=== PATIENT | female | born 1950 | race Caucasian/White ===

== ENCOUNTER 2020-03-12 10:01 | Inpatient (IN) | payer OTHER ==
[2020-03-12 10:18] VITALS: BMI 27.4
--- NOTE | 2020-03-12 10:43 | PDOC ---
History of Present Illness - General Chief Complaint: Pain Stated Complaint: STOMACH PAIN (DISCOMFORT) Time Seen by Provider: 03/12/20 10:42 History Source: Patient Exam Limitations: No Limitations - History of Present Illness Initial Comments: 03/12/20 10:43 69yF w PMHx HTN HLD GERD presenting w Past History - Medical History Allergies/Adverse Reactions: Allergies Allergy/AdvReac Type Severity Reaction Status Date / Time No Known Allergies Allergy Verified 03/12/20 10:18 Home Medications: Ambulatory Orders Atorvastatin Ca [Lipitor] 20 mg PO DAILY 12/20/11 Esomeprazole Mag Trihydrate [Nexium] 40 mg PO DAILY 12/20/11 Lisinopril [Prinivil] 20 mg PO DAILY 12/20/11 COPD: No GI Disorders: Yes (GERD) HTN: Yes Hypercholesterolemia: Yes - Reproductive History Is Patient Now?: No - Psycho-Social/Smoking History Smoking Status: No Smoking History: Never smoked Have you smoked in the past 12 months: No Number of Cigarettes Smoked Daily: 0 Information on smoking cessation initiated: No - Substance Abuse Hx (Audit-C & DAST Scrn) How often the patient has a drink containing alcohol: Never Score: In Men: 4 or > Positive; In Women: 3 or > Positive: 0 Screen Result (Pos requires Nsg. Audit-10AR): Negative In the last yr the pt used illegal drug/Rx for NonMed reason: No Score: Yes response is considered Positive: 0 Screen Result (Positive result requires Nsg. DAST-10): Negative *Physical Exam - Vital Signs Last Vital Signs Temp Pulse Resp BP Pulse Ox 98.6 F 110 H 17 139/83 100 03/12/20 10:06 03/12/20 10:06 03/12/20 10:06 03/12/20 10:06 03/12/20 10:06
--- NOTE | 2020-03-12 10:56 | PDOC ---
History of Present Illness - General Chief Complaint: Pain Stated Complaint: STOMACH PAIN (DISCOMFORT) Time Seen by Provider: 03/12/20 10:42 - History of Present Illness Initial Comments: 03/12/20 10:49 69yo F w/ PMH diverticuli and GERD p/w 1wk suprapubic ABD pain. It is worst in the AM and gets better after defecation. It is not getting better or worse. No apparent aggrevating factors. It does not radiate. She went to urgent care on Monday03/08/2020 and was prescribed cipro/flagyl. She has been taking them since then but has not had any relief. Associated w/ decreased appetite, some discomfort w/ urination, decreased c aliber stools, increased pushing needed to produce BM. Endorses that difference between this episode and her last episode of diverticulitis was that last time the ABX resolved the discomfort. Denies recent fever/rash/sore throat/illness. Denies hematuria, burning w/ urination, or vaginal/urinary discharge. States she is up to date on pap smear and colonoscopy. Denies ABD surgery, denies children. PMH: GERD, diverticuli, melanoma in situ in 2015 PSH: Myomectomy for fibroids in the . SHx: denies smoking, EtOH, street drugs, sexual activity. Past History - Medical History Allergies/Adverse Reactions: Allergies Allergy/AdvReac Type Severity Reaction Status Date / Time No Known Allergies Allergy Verified 03/12/20 10:18 Home Medications: Ambulatory Orders Atorvastatin Ca [Lipitor] 20 mg PO DAILY 12/20/11 Esomeprazole Mag Trihydrate [Nexium] 40 mg PO DAILY 12/20/11 Lisinopril [Prinivil] 20 mg PO DAILY 12/20/11 COPD: No GI Disorders: Yes (GERD) HTN: Yes Hypercholesterolemia: Yes - Reproductive History Is Patient Now?: No - Psycho-Social/Smoking History Smoking Status: No Smoking History: Never smoked Have you smoked in the past 12 months: No Number of Cigarettes Smoked Daily: 0 Information on smoking cessation initiated: No - Substance Abuse Hx (Audit-C & DAST Scrn) How often the patient has a drink containing alcohol: Never Score: In Men: 4 or > Positive; In Women: 3 or > Positive: 0 Screen Result (Pos requires Nsg. Audit-10AR): Negative In the last yr the pt used illegal drug/Rx for NonMed reason: No Score: Yes response is considered Positive: 0 Screen Result (Positive result requires Nsg. DAST-10): Negative Review of Systems - Review of Systems Able to Perform ROS?: Yes Is the patient limited Ethiopian proficient: No Constitutional: Yes: Loss of Appetite, Other (fatigue). No: Chills, Fever, Night Sweats, Weakness HEENTM: No: Blurred Vision, Tearing, Ear Pain, Nose Congestion, Difficulty Swallowing Respiratory: No: Cough, Shortness of Breath, SOB with Exertion, Wheezing, Productive cough Cardiac (ROS): No: Chest Pain, Irregular Heart Rate, Palpitations, Syncope ABD/GI: Yes: Abd. Pain w/ defecation, Constipated, Poor Appetite, Poor Fluid Intake, Abdominal cramping. No: Abdominal Distended, Blood Streaked Bowels, Diarrhea, Nausea, Vomiting : Yes: Pain. No: Burning, Dysuria, Discharge, Frequency, Flank Pain, Hematuria Musculoskeletal: No: Back Pain, Muscle Weakness Integumentary: No: Rash Neurological: No: Headache, Dizziness Endocrine: No: Excessive Sweating, Unexplained Weight Gain, Unexplained Weight Loss Hematologic/Lymphatic: No: Symptoms Reported *Physical Exam - Vital Signs Last Vital Signs Temp Pulse Resp BP Pulse Ox 98.6 F 110 H 17 139/83 100 03/12/20 10:06 03/12/20 10:06 03/12/20 10:06 03/12/20 10:06 03/12/20 10:06 - Physical Exam General Appearance: Yes: Nourished, Appropriately Dressed, Apparent Distress HEENT: positive: EOMI, Normal Voice Respiratory/Chest: positive: Lungs Clear, Normal Breath Sounds. negative: Chest Tender Cardiovascular: positive: Regular Rhythm, S1, S2, Tachycardia. negative: Irregularly Irregular Gastrointestinal/Abdominal: positive: Normal Bowel Sounds, Soft. negative: Tender, Organomegaly, Pulsatile Mass, Increased Bowel Sounds, Guarding, Tenderness Musculoskeletal: positive: Normal Inspection Extremity: positive: Normal Capillary Refill, Normal Range of Motion Integumentary: positive: Normal Color, Dry, Warm Neurologic: positive: Alert, Normal Mood/Affect, Normal Response ED Treatment Course - LABORATORY CBC & Chemistry Diagram: 03/12/20 10:56 03/12/20 10:56 - RADIOLOGY Radiology Studies Ordered: Category Date Time Status ABDOMEN & PELVIS CT WITH CONTR [CT] Stat CT Scan 03/12/20 10:47 Ordered Medical Decision Making - Medical Decision Making 03/12/20 10:59 h/o diverticulitis -> CT ABD/Pelvis w/ IV contrast. decreased caliber stools and need to push for BM -> CT ABD/Pelvis to look for feces CBC to look for anemia and signs of inflammation. CMP to look for electrolyte perturbation Discharge - Discharge Information Problems reviewed: Yes Clinical Impression/Diagnosis: Diverticulitis - Admission Yes - Follow up/Referral - Patient Discharge Instructions - Post Discharge Activity
[2020-03-12] MEDS ORDERED: LACTATED RINGERS SOLUTION 1000 ML INFUS.BAG IV ONE ×2 (11:11→14:36)
[2020-03-12 11:30] LABS: HEMATOCRIT 36.2 % (32.4-45.2); MCH 29.7 pg (25.7-33.7); MCHC 33.2 g/dl (32.0-36.0); MEAN CELL VOLUME 89.4 fl (80-96); MEAN PLT VOLUME 7.7 fl (7.5-11.1); PLATELET COUNT 343 K/MM3 (134-434); RBC 4.05 M/mm3 (3.60-5.2); RDW 13.2 % (11.6-15.6); WHITE BLOOD COUNT 12.2 K/mm3 (4.0-10.0)
[2020-03-12 11:37] LABS: INR 1.2 (0.83-1.09); PROTHROMBIN TIME (PATIENT) 14.2 SEC (9.7-13.0)
[2020-03-12 11:39] LABS: ACTIVATED PTT 32.8 SECONDS (25.2-36.5)
[2020-03-12 11:59] LABS: MAGNESIUM 1.9 mg/dL (1.8-2.4); PHOSPHOROUS 3.1 mg/dL (2.5-4.9)
[2020-03-12 12:02] LABS: ALBUMIN 3.2 g/dl (3.4-5.0); BILIRUBIN,TOTAL 0.3 mg/dL (0.2-1); BLOOD UREA NITROGEN 6.6 mg/dL (7-18); CALCIUM 9.3 mg/dL (8.5-10.1); CREATININE 0.7 mg/dL (0.55-1.3); TOT PROT 6.6 g/dl (6.4-8.2)
[2020-03-12 12:41] LABS: PH,URINE 6.5 (5.0-8.0); URINE APPEARANCE CLEAR; URINE BILIRUBIN NEGATIVE (NEGATIVE); URINE COLOR YELLOW; URINE GLUCOSE (UA) NEGATIVE (NEGATIVE); URINE KETONE NEGATIVE (NEGATIVE); URINE LEUK ESTERASE NEGATIVE (NEGATIVE); URINE NITRITE NEGATIVE (NEGATIVE); URINE PROTEIN NEGATIVE (NEGATIVE); URINE UROBILINOGEN 0.2 mg/dL (0.2-1.0)
--- NOTE | 2020-03-12 14:19 | PDOC ---
Documentation entered by Mallory Foreman SCRIBE, acting as scribe for Nishant Rogel MD. Nishant Rogel MD: This documentation has been prepared by the cynthiaibe, Mallory Foreman SCRIBE, under my direction and personally reviewed by me in its entirety. I confirm that the documentation accurately reflects all work, treatment, procedures, and medical decision making performed by me. Attending Attestation - Resident Resident Name: Diego Garay - ED Attending Attestation I have performed the following: I have examined & evaluated the patient, The case was reviewed & discussed with the resident, I agree w/resident's findings & plan, Exceptions are as noted - HPI HPI: 03/12/20 12:01 The patient is a 69-year-old female with a past medical history significant for diverticulitis and GERD who presents to the emergency department with abdominal pain. The patient presents with 1-week history of suprapubic abdominal pain, associated with decreased appetite. The patient reports the pain is worse in the morning, with relief noted after a bowel movement. States the sxs are identical to when she had diverticulitis in the past. The patient reports presenting at an urgent care on 03/08 for the symptoms, was prescribed Cipro and Flagyl. The patient reports being compliant with the medication x5 days, without pain relief. Denies fever, chills, chest pain, SOB, nausea, vomiting, diarrhea. Denies headache, dizziness, focal weakness/numbness. - Physicial Exam PE: 03/12/20 14:07 GENERAL: Awake, alert, and fully oriented, in no acute distress. +mildly uncomfortable. EYES: PERRLA, EOMI, sclera anicteric, conjunctiva clear ENT: Oropharynx clear without exudates. Moist mucosa NECK: Normal ROM, supple, no lymphadenopathy, JVD, or masses LUNGS: Breath sounds equal, clear to auscultation bilaterally. No wheezes, and no crackles HEART: tachycardic but regular to 104, normal S1 and S2, no murmurs, rubs or gallops ABDOMEN: +suprapubic tenderness to palpation, nondistended. Soft, normoactive bowel sounds. No guarding, no rebound. No masses. No CVA tenderness. EXTREMITIES: Normal range of motion, no edema. No clubbing or cyanosis. No cords, erythema, or tenderness BACK: No midline spinal tenderness in cervical/thoracic/lumbar region NEUROLOGICAL: Normal speech, cranial nerves intact, equal strength and sensation b/l SKIN: Warm, Dry, normal turgor, no rashes or lesions noted. - Medical Decision Making 03/12/20 14:18 69-year-old female presents emergency department with 1 week of suprapubic abdominal pain. Patient was diagnosed with presumed diverticulitis at urgent care and has been taking 5 days of ciprofloxacin and Flagyl. Differential includes diverticulitis versus colitis versus enteritis versus UTI versus appendectomy. Plan: -labs -UA -CTAP w IV contrast -reassess
[2020-03-12] MEDS ORDERED: PIPERACILLIN/TAZOB 4.5 GM 4.5 GM in DEXTROSE 5%-WATER 100 ML IVPB ONE (14:35)
[2020-03-12] MEDS ORDERED: PIPERACILLIN/TAZOB 4.5 GM 4.5 GM/100 ML BAG IVPB ONE (14:46)
[2020-03-12] MEDS ORDERED: SODIUM CHLORIDE 1,000 ML IV SCH (15:00)
--- NOTE | 2020-03-12 15:17 | HP ---
CHIEF COMPLAINT: Lower abdominal pain PCP: Carol Pantoja HISTORY OF PRESENT ILLNESS: 69yoF with h/o diverticulitis, GERD, and HLD who presents with 1 wk of lower abdominal pain. She has been in her usual state of health until about a week ago when she developed abdominal cramping that progressed to lower abdominal pain, similar to prior episodes of diverticulitis. Patient reports she was seen at urgent care on 03/08 and started on ciprofloxacin and metronidazole without improvement in pain. Endorses poor oral intake and bowel movements that vary from hard to loose but denies fever, chills, vomiting, hematochezia, melena. Notes she had one prior episode of diverticulitis about 5 years ago that improved with outpatient management. She follows with Dr. Walker for GI, most recent colonoscopy was around 2y ago. Patient was afebrile but tachycardic in the ED to 110, labs notable for WBC 12. 2. CT abd/pelvis showed evidence of acute sigmoid diverticulitis without abscess. Patient received 2L LR bolus and Zosyn and is admitted for further management. At time of evaluation, patient notes pain has improved and does not require analgesia. Recent Travel: Denies PAST MEDICAL HISTORY: in addition to above: HTN, no longer on medication melanoma in situ (remote) uterine fibroids PAST SURGICAL HISTORY: Myomectomy Bilateral knee meniscal repairs Social History: Smoking: Remote, quit 40y ago Alcohol: Denies Drugs: Denies Allergies No Known Allergies Allergy (Verified 03/12/20 10:18) HOME MEDICATIONS: Lipitor 20mg PO qhs Famotidine 20mg PO daily Esomeprazole 40mg PO daily Vitamin D Vitamin C REVIEW OF SYSTEMS 10pt ROS negative except as noted in HPI PHYSICAL EXAMINATION Vital Signs - 24 hr 03/12/20 10:06 Temperature 98.6 F Pulse Rate 110 H Respiratory 17 Rate Blood Pressure 139/83 O2 Sat by Pulse 100 Oximetry (%) GENERAL: Awake, alert, and fully oriented, in no acute distress. EYES: Pupils equal, round and reactive to light, extraocular movements intact, sclera anicteric, conjunctiva clear EARS, NOSE, THROAT: Moist mucous membranes. LUNGS: Breath sounds equal, clear to auscultation bilaterally. No wheezes, and no crackles. No accessory muscle use. HEART: Regular rate and rhythm, normal S1 and S2 without murmur, rub or gallop. ABDOMEN: Soft, not distended, normoactive bowel sounds. Mildly tender to palpation lower abdomen without guarding or rebound. MUSCULOSKELETAL: No peripheral edema NEUROLOGICAL: Cranial nerves II-XII intact. Normal speech. PSYCHIATRIC: AOx3. Cooperative. Good eye contact. Appropriate mood and affect. SKIN: Warm, dry, normal turgor, no rashes or lesions noted, normal capillary refill. Laboratory Results - last 24 hr 03/12/20 03/12/20 03/12/20 06:50 10:56 10:56 WBC 12.2 H RBC 4.05 Hgb 12.0 Hct 36.2 MCV 89.4 MCH 29.7 MCHC 33.2 RDW 13.2 Plt Count 343 D MPV 7.7 PT with INR INR PTT (Actin FS) Sodium 138 Potassium 4.0 Chloride 103 Carbon Dioxide 28 Anion Gap 7 L BUN 6.6 L Creatinine 0.7 Est GFR (CKD-EPI)AfAm 103.91 Est GFR (CKD-EPI)NonAf 89.65 Random Glucose 181 H Lactic Acid Calcium 9.3 Phosphorus Magnesium Total Bilirubin 0.3 AST 9 L ALT 21 Alkaline Phosphatase 71 Total Protein 6.6 Albumin 3.2 L Lipase Urine Color Urine Appearance Urine pH Ur Specific Vanderbilt Urine Protein Urine Glucose (UA) Urine Ketones Urine Blood Urine Nitrite Urine Bilirubin Urine Urobilinogen Ur Leukocyte Esterase Blood Type O POSITIVE 03/12/20 03/12/20 03/12/20 10:56 10:56 10:56 WBC RBC Hgb Hct MCV MCH MCHC RDW Plt Count MPV PT with INR 14.20 H INR 1.20 H PTT (Actin FS) 32.8 Sodium Potassium Chloride Carbon Dioxide Anion Gap BUN Creatinine Est GFR (CKD-EPI)AfAm Est GFR (CKD-EPI)NonAf Random Glucose Lactic Acid 2.0 Calcium Phosphorus 3.1 Magnesium 1.9 Total Bilirubin AST ALT Alkaline Phosphatase Total Protein Albumin Lipase 72 L Urine Color Urine Appearance Urine pH Ur Specific Vanderbilt Urine Protein Urine Glucose (UA) Urine Ketones Urine Blood Urine Nitrite Urine Bilirubin Urine Urobilinogen Ur Leukocyte Esterase Blood Type 03/12/20 12:00 WBC RBC Hgb Hct MCV MCH MCHC RDW Plt Count MPV PT with INR INR PTT (Actin FS) Sodium Potassium Chloride Carbon Dioxide Anion Gap BUN Creatinine Est GFR (CKD-EPI)AfAm Est GFR (CKD-EPI)NonAf Random Glucose Lactic Acid Calcium Phosphorus Magnesium Total Bilirubin AST ALT Alkaline Phosphatase Total Protein Albumin Lipase Urine Color Yellow Urine Appearance Clear Urine pH 6.5 Ur Specific [place]bilt 1.007 L Urine Protein Negative Urine Glucose (UA) Negative Urine Ketones Negative Urine Blood Negative Urine Nitrite Negative Urine Bilirubin Negative Urine Urobilinogen 0.2 Ur Leukocyte Esterase Negative Blood Type CXR and CT abd/pelvis reviewed in chart ASSESSMENT/PLAN: 69yoF with h/o diverticulitis, GERD, HTN, and HLD who presents with 1 wk of lower abdominal pain similar to prior episodes of diverticulitis, found to have acute sigmoid diverticulitis without improvement in symptoms despite outpatient antibiotics. Sepsis secondary to acute sigmoid diverticulitis Meets sepsis criteria with leukocytosis, tachycardia s/p roughly 30cc/kg bolus in ED and Zosyn given outpatient antibiotic failure CT abd/pelvis showing acute sigmoid diverticulitis without evidence of complications First recurrence since initial episode of diverticulitis about 5y ago - NPO except meds pending improvement; advance as tolerated - Continue maintenance fluids - continue Zosyn 4.5g q6h - consult GI Chronic: HLD: continue atorvastatin GERD: continue famotidine, PPI DVT ppx: Lovenox subq Code status: Full Family Medical History Family History: Denies Visit type - Medication Review Med list reviewed for High Risk Meds patients 65 and older: Yes - Emergency Visit Emergency Visit: No - New Patient This patient is new to me today: Yes Date on this admission: 03/12/20 - Critical Care Critical Care patient: No
--- NOTE | 2020-03-12 15:28 | EKG ---
Test Reason : Blood Pressure : / mmHG Vent. Rate : 077 BPM Atrial Rate : 077 BPM P-R Int : 130 ms QRS Dur : 078 ms QT Int : 388 ms P-R-T Axes : 035 -10 046 degrees QTc Int : 439 ms NORMAL SINUS RHYTHM ANTERIOR INFARCT , AGE UNDETERMINED ABNORMAL ECG WHEN COMPARED WITH ECG OF 16-JUL-2010 12:32, ANTERIOR INFARCT IS NOW PRESENT Confirmed by RUSTY STEWART MD ([id number]) on 03/12/2020 3:28:10 PM Referred By: Confirmed By:RUSTY STEWART MD
[2020-03-12] MEDS ORDERED: DEXTROSE 5%-WATER 100 ML IVPB ONE (19:46)
[2020-03-12] MEDS ORDERED: PIPERACILLIN/TAZOBACTAM 4.5 GM VIAL IVPB ONE (19:46)
[2020-03-12] MEDS: ACETAMINOPHEN 325 MG TABLET (FP) PO PRN (19:55)
[2020-03-12] MEDS ORDERED: PIPERACILLIN/TAZOB 4.5 GM 4.5 GM in DEXTROSE 5%-WATER 100 ML IVPB SCH (21:00)
[2020-03-12] MEDS: PIPERACILLIN/TAZOB 4.5 GM 4.5 GM in DEXTROSE 5%-WATER 100 ML IVPB SCH (22:00)
[2020-03-12] MEDS: ATORVASTATIN CA 20 MG TABLET (FP) PO SCH (22:13)
[2020-03-13] MEDS ORDERED: DEXTROSE 5%-WATER 100 ML IVPB ONE (01:59)
[2020-03-13] MEDS ORDERED: PIPERACILLIN/TAZOBACTAM 4.5 GM VIAL IVPB ONE (01:59)
[2020-03-13] MEDS: PIPERACILLIN/TAZOB 4.5 GM 4.5 GM in DEXTROSE 5%-WATER 100 ML IVPB SCH (02:14)
[2020-03-13] MEDS: ACETAMINOPHEN 325 MG TABLET (FP) PO PRN ×2 (06:59→19:53)
--- NOTE | 2020-03-13 08:03 | PN ---
Progress Note, Physician Chief Complaint: Seen and examined in bed. Minimal abdominal pain. States pain resolved after she had small BM last night.Noted to have uncomplicated sigmoid diverticuliis on CT scan, started on IV abx. GI following. To start on clear liquids History of Present Illness: 69yoF with h/o diverticulitis, GERD, HTN, and HLD who presents with 1 wk of lower abdominal pain similar to prior episodes of diverticulitis, found to have acute sigmoid diverticulitis without improvement in symptoms despite outpatient antibiotics. - Current Medication List Current Medications: Active Medications Acetaminophen (Tylenol -) 650 mg PO Q4H PRN PRN Reason: MILD PAIN 1-3 Last Admin: 03/13/20 06:59 Dose: 650 mg Documented by: Atorvastatin Calcium (Lipitor -) 20 mg PO HS RATNA Last Admin: 03/12/20 22:13 Dose: 20 mg Documented by: Enoxaparin Sodium (Lovenox -) 40 mg SQ DAILY RATNA Famotidine (Pepcid -) 20 mg PO DAILY RATNA Sodium Chloride (Normal Saline -) 1,000 mls @ 100 mls/hr IV ASDIR RATNA Last Admin: 03/12/20 15:08 Dose: 100 mls/hr Documented by: Piperacillin Sod/Tazobactam (Sod 4.5 gm/ Dextrose) 100 mls @ 200 mls/hr IVPB Q6H-IV RATNA; Protocol Piperacillin Sod/Tazobactam (Sod 4.5 gm/ Dextrose) 100 mls @ 200 mls/hr IVPB Q6H-IV RATNA; Protocol Stop: 03/13/20 15:29 Last Admin: 03/13/20 02:14 Dose: 200 mls/hr Documented by: - Objective Vital Signs: Vital Signs Temperature 98.9 F 03/13/20 05:13 Pulse Rate 69 03/13/20 05:13 Respiratory Rate 18 03/13/20 05:13 Blood Pressure 120/68 03/13/20 05:13 O2 Sat by Pulse Oximetry (%) 87 L 03/13/20 05:13 Constitutional: Yes: Well Nourished, No Distress, Calm Eyes: Yes: WNL, Conjunctiva Clear HENT: Yes: WNL, Atraumatic, Normocephalic Neck: Yes: WNL, Supple, Trachea Midline Cardiovascular: Yes: WNL, Regular Rate and Rhythm Respiratory: Yes: WNL, Regular, CTA Bilaterally Gastrointestinal: Yes: WNL, Normal Bowel Sounds ...Rectal Exam: Yes: Deferred Genitourinary: Yes: WNL Breast(s): Yes: WNL Musculoskeletal: Yes: WNL Extremities: Yes: WNL Edema: No Peripheral Pulses WNL: Yes Integumentary: Yes: WNL Neurological: Yes: WNL, Alert, Oriented ...Motor Strength: WNL Psychiatric: Yes: WNL Labs: CBC, BMP 03/12/20 10:56 03/12/20 10:56 INR, PTT INR 1.20 (0.83-1.09) H 03/12/20 10:56 - ....Imaging Cat Scan: Report Reviewed (CT abd/pelvis showed evidence of acute sigmoid diverticulitis without abscess.) Problem List - Problems (1) Prophylactic measure Assessment/Plan: FEN Fluids: IVF Electrolytes: monitor & replete as needed Nutrition: NPO-can start clears at lunch DVT moderate risk sq lovenox Dispo Maintain as inpatient full code discharge planning Code(s): Z29.9 - ENCOUNTER FOR PROPHYLACTIC MEASURES, UNSPECIFIED (2) Suspected COVID-19 virus infection Assessment/Plan: COVID Suspicion low On RA strict airborne/droplet precautions until resulted Code(s): Z20.828 - CONTACT W AND EXPOSURE TO OTH VIRAL COMMUNICABLE DISEASES (3) GERD (gastroesophageal reflux disease) Assessment/Plan: c/w home famotodine Code(s): K21.9 - GASTRO-ESOPHAGEAL REFLUX DISEASE WITHOUT ESOPHAGITIS (4) HTN (hypertension) Assessment/Plan: normotensive on no home meds Code(s): I10 - ESSENTIAL (PRIMARY) HYPERTENSION (5) HLD (hyperlipidemia) Assessment/Plan: c/w atorvastatin Code(s): E78.5 - HYPERLIPIDEMIA, UNSPECIFIED (6) Diverticulitis Assessment/Plan: Acute uncomplicated sigmoid diverticulitis appreciate GI consultation can advance to clear liquids for lunch c/w abx-ertapenem as per GI if continues to clinically improve advance , can advance diet, change to PO Abx tomorrow (augmentin 875mg PO Q12 hours) 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 has follow-up visit 03/17 Code(s): K57.92 - DVTRCLI OF INTEST, PART UNSP, W/O PERF OR ABSCESS W/O BLEED Visit type - Emergency Visit Emergency Visit: Yes ED Registration Date: 03/12/20 Care time: The patient presented to the Emergency Department on the above date and was hospitalized for further evaluation of their emergent condition. - New Patient This patient is new to me today: Yes Date on this admission: 03/13/20 - Critical Care Critical Care patient: No - Discharge Referral Referred to [facility] Med P.C[facility] No - Medication Review Med list reviewed for High Risk Meds patients 65 and older: Yes
--- NOTE | 2020-03-13 08:04 | CON.GI ---
Consult Consult Specialty:: GI Referred by:: Hospitalist Service Reason for Consultation:: Abd. pain - History of Present Illness Chief Complaint: Lower abdominal pain History of Present Illness: 69F admitted for evaluation of abdominal pain. States that began having pelvic / LLQ pain last , it progressed in intensity, went to urgent care this past monday (her machine etcher Dr. Bonilla in [place] could not see her this week), was given cipro/flagyl. Pain persisted so she came to ER. Noted to have uncomplicated sigmoid diverticuliis on CT scan, started on zosyn. Pain improving. Had diverticulitis about 5 years ago. Last colonoscopy was 1.5 [address] Bonilla. She believes that it was a normal study. Mother had colon cancer age 78. Overall pain improved. Had a small bowel movement. Takes nightly xanax to help her sleep - History Source History Provided By: Patient - Past Medical History Cardio/Vascular: Yes: HTN Gastrointestinal: Yes: Diverticulitis (2004), Diverticulosis, GERD ...: No - Past Surgical History Additional Surgical History: Myomectomy and knee surgery - Alcohol/Substance Use History of Substance Use: reports: None - Smoking History Smoking history: Never smoked Have you smoked in the past 12 months: No Aproximately how many cigarettes per day: 0 Home Medications - Allergies Allergies/Adverse Reactions: Allergies Allergy/AdvReac Type Severity Reaction Status Date / Time No Known Allergies Allergy Verified 03/12/20 10:18 - Home Medications Home Medications: Ambulatory Orders Atorvastatin Ca [Lipitor] 20 mg PO HS 12/20/11 Esomeprazole Mag Trihydrate [Nexium] 40 mg PO DAILY 12/20/11 Famotidine [Acid Controller] 20 mg PO DAILY 03/12/20 Physical Exam-GI Vital Signs: Vital Signs Temperature 98.9 F 03/13/20 05:13 Pulse Rate 69 03/13/20 05:13 Respiratory Rate 18 03/13/20 05:13 Blood Pressure 120/68 03/13/20 05:13 O2 Sat by Pulse Oximetry (%) 87 L 03/13/20 05:13 Constitutional: Yes: Calm Eyes: No: Sclera Icterus Cardiovascular: Yes: Regular Rate and Rhythm. No: Murmur Respiratory: Yes: CTA Bilaterally Gastrointestinal Inspection: No: Distention ...Auscultate: Yes: Normoactive Bowel Sounds ...Palpate: Yes: Soft. No: Hepatomegaly, Splenomegaly, Tenderness ...Percussion: No: Tympanitic Edema: No (No LE edema) Neurological: Yes: Alert, Oriented Labs: CBC, BMP 03/12/20 10:56 03/12/20 10:56 INR, PTT INR 1.20 (0.83-1.09) H 03/12/20 10:56 Hepatic Panel Total Bilirubin 0.3 mg/dL (0.2-1) 03/12/20 10:56 AST 9 U/L (15-37) L 03/12/20 10:56 ALT 21 U/L (13-61) 03/12/20 10:56 Alkaline Phosphatase 71 U/L (45-117) 03/12/20 10:56 Albumin 3.2 g/dl (3.4-5.0) L 03/12/20 10:56 Imaging - Results Cat Scan: Report Reviewed, Image Reviewed Problem List - Problems (1) Diverticulitis Assessment/Plan: Acute uncomplicated sigmoid diverticulitis: 2nd episode, last around 2014 Clinically improved with benign exam Advise: Advance to clear liquids for lunch AM labs Continue IV Abx for today If continued clinical improvement / improvement in leukocytosis advance , can advance diet, change to PO Abx tomorrow (augmentin 875mg PO Q12 hours). Would need total of 10 days of antibiotics. Needs follow-up with her machine etcher. has follow-up visit 9/ AM Labs Code(s): K57.92 - DVTRCLI OF INTEST, PART UNSP, W/O PERF OR ABSCESS W/O BLEED
[2020-03-13 08:48] LABS: BASO % 0.3 % (0-2.0); EOS % 0.4 % (0-4.5); HEMATOCRIT 32.2 % (32.4-45.2); HEMOGLOBIN 10.9 GM/dL (10.7-15.3); LYMPH % 10.6 % (8-40); MCH 29.6 pg (25.7-33.7); MCHC 33.7 g/dl (32.0-36.0); MEAN PLT VOLUME 7.5 fl (7.5-11.1); MONO % 9.4 % (3.8-10.2); NEUT % 79.3 % (42.8-82.8); PLATELET COUNT 314 K/MM3 (134-434); RBC 3.66 M/mm3 (3.60-5.2); WHITE BLOOD COUNT 10.2 K/mm3 (4.0-10.0)
[2020-03-13 09:08] LABS: BLOOD UREA NITROGEN 5.2 mg/dL (7-18); CALCIUM 8.7 mg/dL (8.5-10.1); CREATININE 0.5 mg/dL (0.55-1.3); POTASSIUM 3.9 mmol/L (3.5-5.1)
[2020-03-13] MEDS: FAMOTIDINE 20 MG TABLET PO SCH (09:31)
[2020-03-13] MEDS: DEXTROSE 5%-0.45% SALINE 1,000 ML IV SCH ×2 (09:31→19:52)
[2020-03-13] MEDS: ENOXAPARIN NA (PORCINE) 40 MG/0.4 ML DISP.SYRIN SQ SCH (09:35)
[2020-03-13] MEDS ORDERED: PANTOPRAZOLE SODIUM 40 MG VIAL IVPUSH SCH (10:00)
[2020-03-13] MEDS: ERTAPENEM SODIUM 1 GM in SODIUM CHLORIDE 50 ML IVPB SCH (10:27)
[2020-03-13] MEDS: ATORVASTATIN CA 20 MG TABLET (FP) PO SCH (21:35)
--- NOTE | 2020-03-14 07:18 | DS ---
Physical Exam: SUBJECTIVE: Patient seen and examined. No complaints offered and medically stable for dc to home with f/u with home GI OBJECTIVE: Vital Signs Period Temp Pulse Resp BP Sys/White Pulse Ox Last 24 Hr 98.4 F-99.1 F 63-70 17-19 128-161/66-85 84-99 PHYSICAL EXAM Constitutional: Yes: Well Nourished, No Distress, Calm Eyes: Yes: WNL, Conjunctiva Clear HENT: Yes: WNL, Atraumatic, Normocephalic Neck: Yes: WNL, Supple, Trachea Midline Cardiovascular: Yes: WNL, Regular Rate and Rhythm Respiratory: Yes: WNL, Regular, CTA Bilaterally Gastrointestinal: Yes: WNL, Normal Bowel Sounds ...Rectal Exam: Yes: Deferred Genitourinary: Yes: WNL Breast(s): Yes: WNL Musculoskeletal: Yes: WNL Extremities: Yes: WNL Edema: No Peripheral Pulses WNL: Yes Integumentary: Yes: WNL Neurological: Yes: WNL, Alert, Oriented ...Motor Strength: WNL Psychiatric: Yes: WNL LABS Laboratory Results - last 24 hr 03/12/20 03/13/20 03/13/20 14:50 08:00 08:00 WBC 10.2 H RBC 3.66 Hgb 10.9 Hct 32.2 L MCV 88.0 MCH 29.6 MCHC 33.7 RDW 13.0 Plt Count 314 MPV 7.5 Absolute Neuts (auto) 8.1 H Neutrophils % 79.3 Lymphocytes % 10.6 D Monocytes % 9.4 Eosinophils % 0.4 Basophils % 0.3 Nucleated RBC % 0 Sodium 141 Potassium 3.9 Chloride 106 Carbon Dioxide 28 Anion Gap 7 L BUN 5.2 L Creatinine 0.5 L Est GFR (CKD-EPI)AfAm 116.07 Est GFR (CKD-EPI)NonAf 100.15 Random Glucose 107 H Calcium 8.7 COVID-19 (ANUJ) Not detected HOSPITAL COURSE: Date of Admission:03/12/20 Date of Discharge: 03/14/20 Problem List - Problems (1) Prophylactic measure Assessment/Plan: FEN Fluids: adeqaute intake Electrolytes: monitored & repleted as needed Nutrition:advance as toletrate Dispo discharge to home Code(s): Z29.9 - ENCOUNTER FOR PROPHYLACTIC MEASURES, UNSPECIFIED (2) r/o COVID-19 virus infection Assessment/Plan: neg pcr Code(s): Z20.828 - CONTACT W AND EXPOSURE TO OTH VIRAL COMMUNICABLE DISEASES (3) GERD (gastroesophageal reflux disease) Assessment/Plan: c/w home famotodine Code(s): K21.9 - GASTRO-ESOPHAGEAL REFLUX DISEASE WITHOUT ESOPHAGITIS (4) HTN (hypertension) Assessment/Plan: normotensive on no home meds Code(s): I10 - ESSENTIAL (PRIMARY) HYPERTENSION (5) HLD (hyperlipidemia) Assessment/Plan: c/w atorvastatin Code(s): E78.5 - HYPERLIPIDEMIA, UNSPECIFIED (6) Diverticulitis Assessment/Plan: Acute uncomplicated sigmoid diverticulitis augmentin 875mg PO Q12 hours x 10days 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 has follow-up visit 03/17 Code(s): K57.92 - DVTRCLI OF INTEST, PART UNSP, W/O PERF OR ABSCESS W/O BLEED Medically stable for dc to home Minutes to complete discharge: 35 Discharge Summary Problems reviewed: Yes Reason For Visit: DIVERTICULITIS Current Active Problems Diverticulitis (Acute) GERD (gastroesophageal reflux disease) (Acute) HLD (hyperlipidemia) (Acute) HTN (hypertension) (Acute) Prophylactic measure (Acute) Suspected COVID-19 virus infection (Acute) Hospital Course: HOSPITAL COURSE: Date of Admission:03/12/20 Date of Discharge: 03/14/20 Problem List - Problems (1) Prophylactic measure Assessment/Plan: FEN Fluids: adeqaute intake Electrolytes: monitored & repleted as needed Nutrition:advance as toletrate Dispo discharge to home Code(s): Z29.9 - ENCOUNTER FOR PROPHYLACTIC MEASURES, UNSPECIFIED (2) r/o COVID-19 virus infection Assessment/Plan: neg pcr Code(s): Z20.828 - CONTACT W AND EXPOSURE TO OTH VIRAL COMMUNICABLE DISEASES (3) GERD (gastroesophageal reflux disease) Assessment/Plan: c/w home famotodine Code(s): K21.9 - GASTRO-ESOPHAGEAL REFLUX DISEASE WITHOUT ESOPHAGITIS (4) HTN (hypertension) Assessment/Plan: normotensive on no home meds Code(s): I10 - ESSENTIAL (PRIMARY) HYPERTENSION (5) HLD (hyperlipidemia) Assessment/Plan: c/w atorvastatin Code(s): E78.5 - HYPERLIPIDEMIA, UNSPECIFIED (6) Diverticulitis Assessment/Plan: Acute uncomplicated sigmoid diverticulitis augmentin 875mg PO Q12 hours x 10days 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 has follow-up visit 03/17 Code(s): K57.92 - DVTRCLI OF INTEST, PART UNSP, W/O PERF OR ABSCESS W/O BLEED Medically stable for dc to home Condition: Improved - Instructions Diet, Activity, Other Instructions: DISCHARGE YOUR VISIT You came to the hospital because you have abdominal pain. A CT scan was done that revealed Acute uncomplicated sigmoid diverticulitis. You were started on antibiotics and GI saw you. You can follow up with your GI doctor-appointment 03/17 MEDICATIONS Please continue to take your home medications as prescribed. There was no changes AUGMENTIN 875 twice a day x 10 days DIET Continue your home diet ADDITIONAL CARE Please make an appointment to see your GI doctor on 03/17. ADDITIONAL INFORMATION Please call 911 or come directly to the emergency department if you experience unusual headache, vision change, shortness of breath, chest pain, numbness, tingling, loss of alertness/awareness, loss of function, unusual bleeding or any alarming symptoms. Thank you for allowing me to care for you. Jeremy Silverman, [facility], [facility] [phone] Disposition: HOME - Home Medications Comprehensive Discharge Medication List: Ambulatory Orders Atorvastatin Ca [Lipitor] 20 mg PO HS 12/20/11 Esomeprazole Mag Trihydrate [Nexium] 40 mg PO DAILY 12/20/11 Famotidine [Acid Controller] 20 mg PO DAILY 03/12/20 Amoxicillin/Potassium Clav [Augmentin 875-125 Tablet] 1 each PO BID #20 tablet 03/13/20 Atorvastatin Ca [Lipitor] 20 mg PO HS tablet 03/13/20 Problem List - Problems (1) Prophylactic measure Code(s): Z29.9 - ENCOUNTER FOR PROPHYLACTIC MEASURES, UNSPECIFIED (2) Suspected COVID-19 virus infection Code(s): Z20.828 - CONTACT W AND EXPOSURE TO OTH VIRAL COMMUNICABLE DISEASES (3) GERD (gastroesophageal reflux disease) Code(s): K21.9 - GASTRO-ESOPHAGEAL REFLUX DISEASE WITHOUT ESOPHAGITIS (4) HTN (hypertension) Code(s): I10 - ESSENTIAL (PRIMARY) HYPERTENSION (5) HLD (hyperlipidemia) Code(s): E78.5 - HYPERLIPIDEMIA, UNSPECIFIED (6) Diverticulitis Code(s): K57.92 - DVTRCLI OF INTEST, PART UNSP, W/O PERF OR ABSCESS W/O BLEED This patient is new to me today: No Emergency Visit: Yes ED Registration Date: 03/12/20 Care time: The patient presented to the Emergency Department on the above date and was hospitalized for further evaluation of their emergent condition. Critical Care patient: No - Discharge Referral Referred to [facility] No
[2020-03-14 09:12] LABS: EOS % 0.6 % (0-4.5); HEMATOCRIT 35.5 % (32.4-45.2); HEMOGLOBIN 11.8 GM/dL (10.7-15.3); LYMPH % 15.2 % (8-40); MCHC 33.4 g/dl (32.0-36.0); MONO % 7.6 % (3.8-10.2); NEUT % 75.6 % (42.8-82.8); PLATELET COUNT 351 K/MM3 (134-434); RBC 3.95 M/mm3 (3.60-5.2); RDW 13.2 % (11.6-15.6); WHITE BLOOD COUNT 7.6 K/mm3 (4.0-10.0)
[2020-03-14] MEDS: FAMOTIDINE 20 MG TABLET PO SCH (09:30)
[2020-03-14] MEDS: ERTAPENEM SODIUM 1 GM in SODIUM CHLORIDE 50 ML IVPB SCH (09:30)
[2020-03-14] MEDS: ENOXAPARIN NA (PORCINE) 40 MG/0.4 ML DISP.SYRIN SQ SCH (09:31)
[2020-03-14 09:43] LABS: ALBUMIN 2.8 g/dl (3.4-5.0); BILIRUBIN,TOTAL 0.3 mg/dL (0.2-1); CREATININE 0.5 mg/dL (0.55-1.3); MAGNESIUM 2.1 mg/dL (1.8-2.4); POTASSIUM 3.8 mmol/L (3.5-5.1); TOT PROT 6.3 g/dl (6.4-8.2)
[2020-03-14 10:20] LABS: BLOOD UREA NITROGEN 2.6 mg/dL (7-18)
[2020-03-14 11:04] VITALS: BP 131/74; PULSE 70; TEMP 98.6
== END 2020-03-14 13:37 | disposition home or self-care (01) | DRG 392 ==
LOC: JER 10:01 → JERBED 16:55 → J6S 18:31
PROVIDERS: ADMIT Hospitalist; ATTEND Nurse Practitioner Acute Care
DX: K57.32 Diverticulitis of large intestine without perforation or abscess without bleeding (principal); K21.9 Gastro-esophageal reflux disease without esophagitis; E78.5 Hyperlipidemia, unspecified
CPT/HCPCS: 36415; 71046-TC-FY; 74177-TC; 80048; 80053; 81003; 83605; 83690; 83735; 84100; 85025; 85027; 85610; 85730; 86140; 86900; 93005; 93010; 99285-25; Q9967; U0003

== ENCOUNTER 2020-06-15 05:13 | Day surgery (SDC) | payer OTHER ==
[2020-06-09 15:20] VITALS: BMI 27.8
[2020-06-15 10:13] VITALS: TEMP 97
[2020-06-15 10:33] VITALS: PULSE 54
[2020-06-15 10:51] VITALS: BP 156/79
== END 2020-06-15 10:59 | disposition home or self-care (01) ==
LOC: JASU-ENDO 05:13
PROVIDERS: ATTEND Internal Medicine Gastroenterology
PROC: 0DBH8ZX Excision of Cecum, Via Natural or Artificial Opening Endoscopic, Diagnostic (ICD-10-PCS; 2020-06-15)
PROC: 0DB98ZX Excision of Duodenum, Via Natural or Artificial Opening Endoscopic, Diagnostic (ICD-10-PCS; 2020-06-15)
PROC: 0DB68ZX Excision of Stomach, Via Natural or Artificial Opening Endoscopic, Diagnostic (ICD-10-PCS; 2020-06-15)
PROC: 0DB38ZX Excision of Lower Esophagus, Via Natural or Artificial Opening Endoscopic, Diagnostic (ICD-10-PCS; 2020-06-15)
PROC: 0DBK8ZX Excision of Ascending Colon, Via Natural or Artificial Opening Endoscopic, Diagnostic (ICD-10-PCS; principal; 2020-06-15 09:00)
DX: D12.0 Benign neoplasm of cecum (principal); D12.2 Benign neoplasm of ascending colon; K57.30 Diverticulosis of large intestine without perforation or abscess without bleeding; K64.8 Other hemorrhoids; K29.50 Unspecified chronic gastritis without bleeding; K44.9 Diaphragmatic hernia without obstruction or gangrene; R10.13 Epigastric pain; K21.9 Gastro-esophageal reflux disease without esophagitis
CPT/HCPCS: 88305-TC; 88342-TC

== ENCOUNTER 2022-03-02 14:59 | Emergency (ER) | payer OTHER ==
[2022-03-02 15:21] VITALS: BP 144/93; PULSE 98; RESP 18; TEMP 98; BMI 28.3
[2022-03-02] MEDS ORDERED: AMPICILLIN NA/SULBACTAM NA 3 GM in SODIUM CHLORIDE 100 ML IVPB ONE (16:08)
[2022-03-02] MEDS ORDERED: RABIES VACCINE (PCEC)/PF 2.5 UNIT/VIAL IM ONE ×2 (16:12→16:48)
[2022-03-02] MEDS ORDERED: RABIES IMMUNE GLOBULIN 300 UNITS/1 ML VIAL IM ONE (16:12)
[2022-03-02] MEDS ORDERED: DIPHTH,PERTUSS(ACELL),TET 0.5 ML DISP.SYRIN IM ONE ×2 (16:13→16:39)
[2022-03-02] MEDS ORDERED: AMPICILLIN NA/SULBACTAM NA 1.5 GM VIAL ONE (16:38)
[2022-03-02] MEDS ORDERED: RABIES IMMUNE GLOBULIN 300 UNITS/1 ML VIAL ONE ×3 (16:47→17:12)
== END 2022-03-02 18:15 | disposition home or self-care (01) ==
LOC: JERFT 14:59
PROC: 3E0333Z Introduction of Anti-inflammatory into Peripheral Vein, Percutaneous Approach (ICD-10-PCS; principal; 2022-03-02)
PROC: 3E0234Z Introduction of Serum, Toxoid and Vaccine into Muscle, Percutaneous Approach (ICD-10-PCS; 2022-03-02)
PROC: 3E0234Z Introduction of Serum, Toxoid and Vaccine into Muscle, Percutaneous Approach (ICD-10-PCS; 2022-03-02)
DX: S61.451A Open bite of right hand, initial encounter (principal); W55.01XA Bitten by cat, initial encounter
CPT/HCPCS: 90375; 90471; 90675; 90715; 96374; 99284-25

== ENCOUNTER 2022-03-05 15:00 | Emergency (ER) | payer OTHER ==
[2022-03-05 15:15] VITALS: BP 127/76; PULSE 67; RESP 18; TEMP 98; BMI 26.5
[2022-03-05] MEDS ORDERED: RABIES VACCINE (PCEC)/PF 2.5 UNIT/VIAL IM ONE ×2 (16:37→16:40)
== END 2022-03-05 17:21 | disposition home or self-care (01) ==
LOC: JER 15:00 → JERFT 15:00
PROC: 3E0234Z Introduction of Serum, Toxoid and Vaccine into Muscle, Percutaneous Approach (ICD-10-PCS; principal; 2022-03-05)
DX: Z29.14 Encounter for prophylactic rabies immune globulin (principal)
CPT/HCPCS: 90471; 90675; 99284-25

== ENCOUNTER 2022-03-09 11:05 | Emergency (ER) | payer OTHER ==
[2022-03-09 11:20] VITALS: BP 136/78; PULSE 81; RESP 18; TEMP 97.9; BMI 26.2
[2022-03-09] MEDS ORDERED: RABIES VACCINE (PCEC)/PF 2.5 UNIT/VIAL IM ONE ×2 (12:07→12:10)
== END 2022-03-09 12:25 | disposition home or self-care (01) ==
LOC: JERFT 11:05
PROC: 3E0234Z Introduction of Serum, Toxoid and Vaccine into Muscle, Percutaneous Approach (ICD-10-PCS; principal; 2022-03-09)
DX: Z29.14 Encounter for prophylactic rabies immune globulin (principal)
CPT/HCPCS: 90471; 90675; 99283-25

== ENCOUNTER 2023-06-26 13:17 | Emergency (ER) | payer OTHER ==
[2023-06-26 14:25] VITALS: RESP 16; BMI 23.3
[2023-06-26] MEDS ORDERED: ACETAMINOPHEN 1000 MG/100 ML BAG IVPB ONE (15:38)
[2023-06-26] MEDS ORDERED: ACETAMINOPHEN INJECTION 100 ML IVPB ONE (16:00)
[2023-06-26 16:18] LABS: BASO % 0.7 % (0-2.0); EOS % 1.8 % (0-4.5); HEMATOCRIT 40.5 % (32.4-45.2); HEMOGLOBIN 13.3 GM/dL (10.7-15.3); MCH 28.4 pg (25.7-33.7); MCHC 32.8 g/dl (32.0-36.0); MEAN CELL VOLUME 86.7 fl (80-96); MONO % 7.1 % (3.8-10.2); NEUT % 69.4 % (42.8-82.8); PLATELET COUNT 282 10^3/uL (134-434); RBC 4.67 M/mm3 (3.60-5.2); RDW 13.5 % (11.6-15.6); WHITE BLOOD COUNT 7.2 K/mm3 (4.0-10.0)
[2023-06-26 16:43] LABS: POTASSIUM 3.8 mmol/L (3.5-5.1)
[2023-06-26 16:45] LABS: ALBUMIN 3.8 g/dl (3.4-5.0); BLOOD UREA NITROGEN 13.2 mg/dL (7-18); CALCIUM 9.3 mg/dL (8.5-10.1)
[2023-06-26 16:50] LABS: BILIRUBIN,TOTAL 0.4 mg/dL (0.2-1); TOT PROT 6.6 g/dl (6.4-8.2)
[2023-06-26 16:56] VITALS: BP 147/77; PULSE 54; TEMP 98
[2023-06-26 16:56] LABS: CREATININE 0.7 mg/dL (0.55-1.3)
== END 2023-06-26 17:31 | disposition home or self-care (01) ==
LOC: JER 13:17
PROC: 3E033NZ Introduction of Analgesics, Hypnotics, Sedatives into Peripheral Vein, Percutaneous Approach (ICD-10-PCS; principal; 2023-06-26)
DX: R07.81 Pleurodynia (principal); R07.89 Other chest pain; M94.0 Chondrocostal junction syndrome [Tietze]
CPT/HCPCS: 36415; 71045-TC-FY; 80053; 84484; 85025; 93005; 93010; 99285-25

== ENCOUNTER 2023-09-29 04:43 | Day surgery (SDC) | payer OTHER ==
[2023-09-26 15:58] VITALS: BMI 25.9
[2023-09-29 10:53] VITALS: RESP 18; TEMP 97.1
[2023-09-29 11:29] VITALS: BP 160/76; PULSE 60
== END 2023-09-29 11:29 | disposition home or self-care (01) ==
LOC: JASU-ENDO 04:43
PROVIDERS: ATTEND Internal Medicine Gastroenterology
PROC: 0DB98ZX Excision of Duodenum, Via Natural or Artificial Opening Endoscopic, Diagnostic (ICD-10-PCS; 2023-09-29)
PROC: 0DB68ZX Excision of Stomach, Via Natural or Artificial Opening Endoscopic, Diagnostic (ICD-10-PCS; 2023-09-29)
PROC: 0DB28ZX Excision of Middle Esophagus, Via Natural or Artificial Opening Endoscopic, Diagnostic (ICD-10-PCS; 2023-09-29)
PROC: 0DB38ZX Excision of Lower Esophagus, Via Natural or Artificial Opening Endoscopic, Diagnostic (ICD-10-PCS; 2023-09-29)
PROC: 0DJD8ZZ Inspection of Lower Intestinal Tract, Via Natural or Artificial Opening Endoscopic (ICD-10-PCS; principal; 2023-09-29 10:00)
DX: Z12.11 Encounter for screening for malignant neoplasm of colon (principal); K57.30 Diverticulosis of large intestine without perforation or abscess without bleeding; K63.89 Other specified diseases of intestine; K64.8 Other hemorrhoids; Z86.010 Personal history of colon polyps; K29.50 Unspecified chronic gastritis without bleeding; K44.9 Diaphragmatic hernia without obstruction or gangrene; K21.00 Gastro-esophageal reflux disease with esophagitis, without bleeding
CPT/HCPCS: 43239; G0105; 88305-TC; 88342-TC

== ENCOUNTER 2024-04-29 13:43 | Emergency (ER) | payer OTHER ==
[2024-04-29 13:47] VITALS: BP 120/78; PULSE 79; RESP 18; TEMP 98.4; BMI 24.7
[2024-04-29] MEDS ORDERED: FAMOTIDINE 20 MG/50 ML IVPB 20 MG/50 ML MG IVPB ONE (14:39)
[2024-04-29] MEDS ORDERED: ACETAMINOPHEN INJECTION 100 ML ONE (14:39)
[2024-04-29] MEDS ORDERED: MAG HYDROX/AL HYDROX/SIMETH 30 ML UNIT-DOSE CUP ONE (14:39)
[2024-04-29 14:54] LABS: BASO % 0.6 % (0-2.0); EOS % 0.7 % (0-4.5); HEMATOCRIT 38.1 % (32.4-45.2); HEMOGLOBIN 12.9 GM/dL (10.7-15.3); LYMPH % 24.7 % (8-40); MCH 29.3 pg (25.7-33.7); MEAN CELL VOLUME 86.2 fl (80-96); MEAN PLT VOLUME 6.8 fl (7.5-11.1); MONO % 8.6 % (3.8-10.2); NEUT % 65.4 % (42.8-82.8); PLATELET COUNT 268 10^3/uL (134-434); RBC 4.42 M/mm3 (3.60-5.2); RDW 14.1 % (11.6-15.6); WHITE BLOOD COUNT 6.9 K/mm3 (4.0-10.0)
[2024-04-29] MEDS: FAMOTIDINE 20 MG/50 ML IVPB 20 MG/50 ML MG IVPB ONE (14:54)
[2024-04-29] MEDS: MAG HYDROX/AL HYDROX/SIMETH 30 ML UNIT-DOSE CUP PO ONE (14:54)
[2024-04-29] MEDS: ACETAMINOPHEN 1000 MG/100 ML BAG IVPB ONE (14:54)
[2024-04-29 15:01] LABS: INR 0.91 (0.83-1.09); PROTHROMBIN TIME (PATIENT) 10.5 SEC (9.7-13.0)
[2024-04-29 15:04] LABS: ACTIVATED PTT 33.6 SECONDS (25.2-36.5)
[2024-04-29 15:15] LABS: POTASSIUM 4.6 mmol/L (3.5-5.1)
[2024-04-29 15:18] LABS: ALBUMIN 3.8 g/dl (3.4-5.0); BLOOD UREA NITROGEN 12.3 mg/dL (7-18); CALCIUM 9.9 mg/dL (8.5-10.1)
[2024-04-29 15:21] LABS: CREATININE 0.6 mg/dL (0.55-1.3)
[2024-04-29 15:22] LABS: BILIRUBIN,TOTAL 0.5 mg/dL (0.2-1)
[2024-04-29 15:23] LABS: TOT PROT 6.6 g/dl (6.4-8.2)
[2024-04-29 16:21] LABS: URINE APPEARANCE CLEAR; URINE BILIRUBIN NEGATIVE (NEGATIVE); URINE COLOR YELLOW; URINE GLUCOSE (UA) NEGATIVE (NEGATIVE); URINE KETONE NEGATIVE (NEGATIVE); URINE LEUK ESTERASE NEGATIVE (NEGATIVE); URINE NITRITE NEGATIVE (NEGATIVE); URINE PROTEIN NEGATIVE (NEGATIVE); URINE UROBILINOGEN 0.2 mg/dL (0.2-1.0)
== END 2024-04-29 18:17 | disposition home or self-care (01) ==
LOC: JER 13:43
DX: K59.00 Constipation, unspecified (principal); R10.32 Left lower quadrant pain; R10.31 Right lower quadrant pain
CPT/HCPCS: 36415; 74177-TC; 80053; 81003; 85025; 85610; 85730; 86850; 86900; 86901; 87086; 99285-25; J0131; Q9967